=== PATIENT | male | born 1940 | race Caucasian/White ===

== ENCOUNTER 2022-08-24 08:15 | Inpatient (IN) | payer MEDICARE ==
[2022-08-24 09:25] LABS: #Lymphocytes 3.5 thou/uL (1.20-3.40); #Neutrophils 9.8 thou/uL (1.40-6.50); %Basophils 0.1 % (0.0-1.0); %Eosinophils 0.3 % (0.0-10.0); %Lymphocytes 24.4 % (21.0-51.0); %Monocytes 7.2 % (0.0-10.0); %Neutrophils 67.9 % (42.0-75.0); Mean Corpuscular HGB CONC 35.4 g/dL (32.0-36.0); Mean Corpuscular Volume 93.2 fl (78.0-98.0); Platelet Count 185 10x3/uL (130-400); RBC Distribution Width 11.8 % (11.5-14.5); Red Blood Cell (RBC) Count 3.33 mill/uL (4.70-6.10); White Blood Cell (WBC) Count 14.4 10x3/uL (4.8-10.8)
[2022-08-24 09:34] LABS: Bacteria/HPF None Seen HPF (None Seen); Bilirubin Negative (Negative); Blood, Urine Negative (Negative); Clarity Clear (Clear); Glucose, Urine (Dipstick) Normal (Negative); Ketone, Urine Negative (Negative); Leukocyte 25 Leu/uL (Negative); Nitrite Negative (Negative); Protein, Urine (Dipstick) Negative (Neg-Trace); RBC/HPF 0-3 HPF (0-3); Specific Gravity, Urine 1.017 (1.002-1.036); Squamous Epithelial 0-3 HPF (0-3); Urobilinogen Normal mg/dL (Less than 2); WBC/HPF 0-3 HPF (0-3)
[2022-08-24 09:39] LABS: INR-International Normal Ratio 2.4; Prothrombin Time 27.3 sec (12.0-14.7)
[2022-08-24 09:40] LABS: PTT 34.2 sec (22.9-36.1)
[2022-08-24 10:10] LABS: CKMB 2.6 ng/mL (0-6.6)
[2022-08-24] MEDS ORDERED: Acetaminophen 325 MG TAB PO PRN (10:14)
[2022-08-24] MEDS ORDERED: Ondansetron PF 4 MG/2 ML Vial IVP PRN (10:14)
[2022-08-24] MEDS ORDERED: Pantoprazole 80 MG, Admixture Fee 1 EACH in Sodium Chloride 0.9% 100 ML IVPB SCH (10:30)
[2022-08-24] MEDS ORDERED: Pantoprazole 40 MG VIAL IVP SCH (10:30)
[2022-08-24] MEDS ORDERED: Phytonadione 10 MG/ML AMP PO SCH (10:30)
[2022-08-24 10:34] LABS: ALT (SGPT) 17 U/L (8-55); AST (SGOT) 24 U/L (5-34); Albumin 3.7 g/dL (3.4-4.8); Alkaline Phosphatase 35 U/L (40-110); Anion Gap 17 mmol/L (10-20); BUN (Urea Nitrogen) 27 mg/dL (8.4-25.7); Bilirubin, Total 1.4 mg/dL (0.2-1.2); Calc. Creatinine Clearance 0 mL/min (70-130); Calcium 8.7 mg/dL (7.8-10.44); Carbon Dioxide 22 mmol/L (23-31); Chloride 93 mmol/L (98-107); Estimated GFR 48; Globulin 2.7 g/dL (2.4-3.5); Glucose 107 mg/dL (83-110); Potassium 3.1 mmol/L (3.5-5.1); Protein, Total 6.4 g/dL (5.8-8.1); Sodium 129 mmol/L (136-145)
[2022-08-24] MEDS ORDERED: Potassium Chloride 20 MEQ TAB PO SCH (11:30)
[2022-08-24] MEDS: Sodium Chloride 0.9% 1,000 ML IV SCH (11:37)
[2022-08-24] MEDS ORDERED: Pantoprazole 40 MG VIAL ONE (11:55)
[2022-08-24] MEDS ORDERED: Phytonadione 10 MG/ML AMP ONE (12:00)
[2022-08-24] MEDS ORDERED: Potassium Chloride 20 MEQ TAB ONE (12:14)
[2022-08-24] MEDS ORDERED: FLU VACC QS2022-23(65YR UP)/PF 240 MCG/0.7 ML SYRINGE IM ONE (15:00)
[2022-08-24 15:14] LABS: Hemoglobin 9.5 g/dL (14.0-18.0)
[2022-08-24] MEDS ORDERED: Phytonadione 5 MG TAB PO SCH (15:56)
[2022-08-24] MEDS: hydrALAZINE 20 MG/ML VIAL SLOW IVP PRN ×2 (16:36→21:29)
[2022-08-24 17:43] LABS: Troponin I 0.107 ng/mL (< 0.028)
[2022-08-24] MEDS: GoLYTELY 4,000 ml Bottle PO SCH (21:31)
[2022-08-24 21:42] LABS: Hemoglobin 9.5 g/dL (14.0-18.0)
[2022-08-25] MEDS: Sodium Chloride 0.9% 1,000 ML IV SCH (04:18)
[2022-08-25] MEDS: GoLYTELY 4,000 ml Bottle PO SCH (04:19)
[2022-08-25 04:41] LABS: #Basophils 0.1 thou/uL (0.0-0.2); #Lymphocytes 2.1 thou/uL (1.20-3.40); #Monocytes 1.3 thou/uL (0.11-0.59); #Neutrophils 12.6 thou/uL (1.40-6.50); %Basophils 0.3 % (0.0-1.0); %Eosinophils 0.3 % (0.0-10.0); %Lymphocytes 13.1 % (21.0-51.0); %Monocytes 8.1 % (0.0-10.0); %Neutrophils 78.2 % (42.0-75.0); Hemoglobin 9.3 g/dL (14.0-18.0); Mean Corpuscular HGB CONC 36.1 g/dL (32.0-36.0); Mean Corpuscular Hemoglobin 33.9 pg (27.0-31.0); Mean Corpuscular Volume 93.8 fl (78.0-98.0); Mean Platelet Volume 8.1 fL (7.4-10.4); Platelet Count 165 10x3/uL (130-400); RBC Distribution Width 12.2 % (11.5-14.5); Red Blood Cell (RBC) Count 2.73 mill/uL (4.70-6.10); White Blood Cell (WBC) Count 16.1 10x3/uL (4.8-10.8)
[2022-08-25 04:47] LABS: INR-International Normal Ratio 1.5; Prothrombin Time 18.4 sec (12.0-14.7)
[2022-08-25 04:48] LABS: PTT 28.1 sec (22.9-36.1)
[2022-08-25 04:59] LABS: ALT (SGPT) 15 U/L (8-55); AST (SGOT) 22 U/L (5-34); Albumin 3.4 g/dL (3.4-4.8); Alkaline Phosphatase 32 U/L (40-110); Anion Gap 16 mmol/L (10-20); BUN (Urea Nitrogen) 22 mg/dL (8.4-25.7); Bilirubin, Total 2.1 mg/dL (0.2-1.2); Calc. Creatinine Clearance 29 mL/min (70-130); Calcium 8.4 mg/dL (7.8-10.44); Carbon Dioxide 25 mmol/L (23-31); Chloride 93 mmol/L (98-107); Estimated GFR 58; Globulin 2.4 g/dL (2.4-3.5); Glucose 142 mg/dL (83-110); Magnesium 1.5 mg/dL (1.6-2.6); Potassium 2.8 mmol/L (3.5-5.1); Protein, Total 5.8 g/dL (5.8-8.1); Sodium 131 mmol/L (136-145)
[2022-08-25] MEDS: hydrALAZINE 20 MG/ML VIAL SLOW IVP PRN ×3 (05:09→18:47)
[2022-08-25] MEDS ORDERED: Lorazepam 2 MG/ML VIAL SLOW IVP SCH ×3 (05:15→13:45)
[2022-08-25 08:16] VITALS: BMI 27.6
[2022-08-25] MEDS ORDERED: Ketamine 50 MG/ML (10ML VIAL) ONE (08:31)
[2022-08-25] MEDS ORDERED: PROPOFOL 200 MG/20 ML VIAL ONE (08:48)
[2022-08-25] MEDS ORDERED: Lidocaine 1% PF 5 ML VIAL ONE (08:48)
[2022-08-25] MEDS ORDERED: Potassium Chloride 20 MEQ TAB PO SCH ×2 (09:00→18:59)
[2022-08-25] MEDS ORDERED: Magnesium Sulfate 3 GM in Sodium Chloride 0.9% 100 ML IVPB SCH (10:00)
[2022-08-25] MEDS: Potassium Chloride 20 MEQ TAB PO SCH ×2 (11:32→14:12)
[2022-08-25] MEDS: NS 0.9% w/ 20 MEQ KCL 1,000 ML/1,000 ML BAG IV SCH (12:18)
[2022-08-25] MEDS: Lorazepam 0.5 MG TAB PO SCH ×2 (15:51→21:01)
[2022-08-25 17:49] LABS: Magnesium 2.2 mg/dL (1.6-2.6); Potassium 3.2 mmol/L (3.5-5.1)
[2022-08-25] MEDS ORDERED: Lorazepam 2 MG/ML VIAL SLOW IVP PRN ×2 (19:00)
[2022-08-26] MEDS ORDERED: hydrOXYzine 25 MG TAB PO SCH (00:30)
[2022-08-26] MEDS: NS 0.9% w/ 20 MEQ KCL 1,000 ML/1,000 ML BAG IV SCH (01:03)
[2022-08-26 04:21] LABS: #Lymphocytes 1.9 thou/uL (1.20-3.40); #Monocytes 1.2 thou/uL (0.11-0.59); #Neutrophils 10.6 thou/uL (1.40-6.50); %Basophils 0.2 % (0.0-1.0); %Eosinophils 0.3 % (0.0-10.0); %Lymphocytes 13.8 % (21.0-51.0); %Monocytes 8.5 % (0.0-10.0); %Neutrophils 77.3 % (42.0-75.0); Hemoglobin 8.5 g/dL (14.0-18.0); Mean Corpuscular HGB CONC 35.8 g/dL (32.0-36.0); Mean Corpuscular Hemoglobin 35.6 pg (27.0-31.0); Mean Corpuscular Volume 99.7 fl (78.0-98.0); Platelet Count 142 10x3/uL (130-400); RBC Distribution Width 13.1 % (11.5-14.5); Red Blood Cell (RBC) Count 2.39 mill/uL (4.70-6.10); White Blood Cell (WBC) Count 13.7 10x3/uL (4.8-10.8)
[2022-08-26 04:49] LABS: Anion Gap 16 mmol/L (10-20); BUN (Urea Nitrogen) 13 mg/dL (8.4-25.7); Calc. Creatinine Clearance 75 mL/min (70-130); Carbon Dioxide 18 mmol/L (23-31); Chloride 101 mmol/L (98-107); Estimated GFR 70; Glucose 115 mg/dL (83-110); Potassium 3.3 mmol/L (3.5-5.1); Sodium 132 mmol/L (136-145)
[2022-08-26] MEDS ORDERED: cloNIDine 0.1 MG TAB PO SCH ×2 (05:45→09:00)
[2022-08-26 06:47] LABS: Bacteria/HPF None Seen HPF (None Seen); Bilirubin Negative (Negative); Blood, Urine Negative (Negative); CAUTI Indications for Culture Dysuria,urgency,freq; Clarity Clear (Clear); Glucose, Urine (Dipstick) Normal (Negative); Ketone, Urine 10 mg/dL (Negative); Leukocyte Negative Leu/uL (Negative); Nitrite Negative (Negative); Protein, Urine (Dipstick) 10 mg/dL (Neg-Trace); RBC/HPF 0-3 HPF (0-3); Specific Gravity, Urine 1.012 (1.002-1.036); Squamous Epithelial 0-3 HPF (0-3); Urobilinogen Normal mg/dL (Less than 2); WBC/HPF 0-3 HPF (0-3)
[2022-08-26 07:06] LABS: Urine Culture Reflex No No
[2022-08-26] MEDS ORDERED: Potassium Chloride 20 MEQ TAB PO SCH ×2 (08:45→12:15)
[2022-08-26] MEDS: Lorazepam 0.5 MG TAB PO SCH (09:23)
[2022-08-26 11:48] LABS: Hemoglobin 9.1 g/dL (14.0-18.0)
[2022-08-26 12:09] LABS: INR-International Normal Ratio 1.1; Prothrombin Time 14.4 sec (12.0-14.7)
[2022-08-26 12:52] VITALS: BP 184/89; TEMP 97
== END 2022-08-26 13:20 | disposition home or self-care (01) | DRG 377 ==
LOC: ERS 08:15 → ERHOLD 10:34 → 2NO 13:45
PROVIDERS: ADMIT Internal Medicine; ATTEND Internal Medicine
PROC: 0W3P8ZZ Control Bleeding in Gastrointestinal Tract, Via Natural or Artificial Opening Endoscopic (ICD-10-PCS; principal; 2022-08-25)
PROC: 0DBK8ZZ Excision of Ascending Colon, Via Natural or Artificial Opening Endoscopic (ICD-10-PCS; 2022-08-25)
PROC: 0DBL8ZZ Excision of Transverse Colon, Via Natural or Artificial Opening Endoscopic (ICD-10-PCS; 2022-08-25)
DX: K57.31 Diverticulosis of large intestine without perforation or abscess with bleeding (principal); I21.A1 Myocardial infarction type 2; D62 Acute posthemorrhagic anemia; E87.1 Hypo-osmolality and hyponatremia; K63.5 Polyp of colon; K64.8 Other hemorrhoids; F10.10 Alcohol abuse, uncomplicated; I10 Essential (primary) hypertension; E78.5 Hyperlipidemia, unspecified; I48.91 Unspecified atrial fibrillation; R00.1 Bradycardia, unspecified; E87.8 Other disorders of electrolyte and fluid balance, not elsewhere classified; E87.6 Hypokalemia; K64.4 Residual hemorrhoidal skin tags; Z79.01 Long term (current) use of anticoagulants; Z79.02 Long term (current) use of antithrombotics/antiplatelets; Z79.82 Long term (current) use of aspirin; Z79.899 Other long term (current) drug therapy
CPT/HCPCS: 36415; 71045; 80048; 80053; 81001; 81003; 81015; 82274; 82553; 83735; 84484; 85025; 85610; 85730; 86850; 86900; 86901; 88305; 93005; C9113; J0360; J2060; J2704; J3430; J3475; J3480; J3490; J7050; U0003; U0005